=== PATIENT | male | born 1945 | race Caucasian/White ===

== ENCOUNTER → 2018-06-19 | Outpatient (CLI) | payer MEDICARE ==
--- NOTE | 2018-06-19 18:27 | Diagnostic Imaging Report ---
EXAMINATION: Cervical spine. INDICATION: Neck pain. FINDINGS: AP, lateral, and odontoid views were obtained. There are no prior studies available for comparison. The lateral view shows the vertebral body heights and alignment to be generally within normal limits. The intervertebral disc spaces are fairly well maintained although the C7-T1 level is not well visualized. There is no fracture or acute bony abnormality identified. There is no sign of retropharyngeal edema. The lung apices are clear. IMPRESSION: 1. There is no evidence for an acute bony abnormality. 2. If there is clinical concern regarding spinal stenosis or nerve root encroachment, then MRI will be recommended for further study. Dictated by: Dictated on workstation # [id number]
== END ==
LOC: RAD FS 14:27
PROVIDERS: ATTEND Family Medicine
DX: M54.12 Radiculopathy, cervical region (principal)
CPT/HCPCS: 72040

== ENCOUNTER → 2018-07-02 | Outpatient (CLI) | payer MEDICARE ==
--- NOTE | 2018-07-02 14:12 | Diagnostic Imaging Report ---
CLINICAL INDICATION: Patient with neck pain and left shoulder and arm pain with occasional numbness and tingling. No injury. EXAM: MRI of the cervical spine without contrast. Sequences include sagittal T2, sagittal T1, sagittal T2 fat-sat, axial T2, and axial 3-D gradient echo. COMPARISON: None. FINDINGS: There is no acute cervical spine fracture or dislocation. There are chronic concave compression deformities involving the upper and lower C4 through T1 endplates related to chronic compression deformities. Limited visualization of posterior fossa shows no significant abnormality. Cervical spinal cord has normal cord caliber. There is a 12 mm x 15 mm (AP x CC) circumscribed heterogeneous high T2 and slightly high T1 signal lesion in the midline posterior nasopharyngeal region at the level of the skull base. 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 C1-C2: There are small degenerative spurs involving the atlanto-odontoid interval anteriorly. There is no significant central canal narrowing. C2-C3: There is mild right facet arthropathy and moderate left facet arthropathy. There is mild right neural foramen narrowing and moderate left neural foramen narrowing. There is no significant central canal narrowing. C3-C4: There is mild diffuse disc bulge and moderate bilateral facet arthropathy with hypertrophic changes on the right. There are bilateral uncinate spurs. There is mild central canal narrowing, moderate right neural foramen narrowing and severe left neural foramen narrowing. C4-C5: There is a diffuse disc bulge with superimposed posterior disc extrusion/herniation. There is severe left facet arthropathy/hypertrophy and mild right facet arthropathy. There is ligamentum flavum buckling. There is moderate central canal narrowing, severe left neural foramen narrowing and at least moderate right neural foramen narrowing. C5-C6: There is a diffuse disc bulge and severe left facet arthropathy/hypertrophy and moderate right facet arthropathy. There is moderate central canal narrowing and concern for lajvhmhw-fq-[id number] bilateral neural foramen narrowing. C6-C7: There is severe bilateral facet arthropathy/hypertrophy. There is severe right neural foramen narrowing and at least mild left neural foramen narrowing. There is ligamentum flavum buckling. There is moderate central canal narrowing. C7-T1: There is a diffuse disc bulge with posterior disc spurs. There is severe right facet arthropathy and moderate left facet arthropathy. There is moderate right neural foramen narrowing and mild left neural foramen narrowing. There is no significant central canal narrowing. IMPRESSION: 1: There is dxcmtgep-pj-[id number] multilevel cervical spine degenerative disc disease which is worse at the C4 through C7 levels, as described above. 2: Chronic compression deformities of the C4 through T1 vertebra. 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 Dictated by: Dictated on workstation # [id number]
== END ==
LOC: RAD 12:39
PROVIDERS: ATTEND Family Medicine
DX: M50.13 Cervical disc disorder with radiculopathy, cervicothoracic region (principal); M46.82 Other specified inflammatory spondylopathies, cervical region; M48.02 Spinal stenosis, cervical region; M43.8X2 Other specified deforming dorsopathies, cervical region; M43.8X4 Other specified deforming dorsopathies, thoracic region
CPT/HCPCS: 72141

== ENCOUNTER 2019-02-08 13:46 | Emergency (ER) | payer MEDICARE ==
[~2019-02-08] VITALS: Ht 177.8 cm; Wt 89.3 kg
--- NOTE | 2019-02-08 14:08 | ED Fall/Injury ---
General Stated Complaint: FALL - HIT HEAD Source: patient, spouse Exam Limitations: no limitations History of Present Illness Date Seen by Provider: Feb 08, 2019 Time Seen by Provider: 13:50 Initial Comments Patient presents to ER by private conveyance with chief complaint of a fall on Saturday, 5 days ago. He was at the [place] ramp trying [place] load a boat onto a trailer when he slipped in the [place] landing on his left side and hitting the back of his head. When he tried to get up again he slipped again landing against on his left hip. He says he has a lot of bruising in his left hip but he has pain pills for that. He is more concerned because he has a headache today and the top of his head and felt tired throughout temple service and had a hard time staying awake. He is not on aspirin, Plavix, Brilinta or any other blood thinners. No coronary history. He has not used anything for his headache. He also has concerns is his neck is very stiff every tries to turn it. He is not having any pain in the middle of his neck. Allergies and Home Medications Patient Home Medication List Home Medication List Reviewed: Yes Review of Systems Review of Systems Constitutional: No chills, No diaphoresis Eyes: Denies Blindness, Denies Blurred Vision Ears, Nose, Mouth, Throat: denies ear pain, denies ear discharge Respiratory: No cough, No short of breath Cardiovascular: No chest pain, No Hx of Intervention, No palpitations Past Hityksv-Eefazc-Aonmja Hx Patient Social History Recreational Drug Use: No Smoking Status: Never a Smoker Physical Exam Vital Signs Capillary Refill : Height, Weight, BMI Height: '" Weight: lbs. oz. kg; BMI Method: General Appearance: WD/WN, no apparent distress HEENT: PERRL/EOMI, normal ENT inspection, TMs normal, pharynx normal, other (atraumatic head without hematoma or abrasion or laceration. 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 Using the shared decision making process we offered a CT of the head and neck and the patient declined. We offered to examine his left hip and he says it does not him. He was able to walk in easily. We'll provide him with some Flexeril for his neck stiffness as well as counseling for concussion management. Return precautions were given. Departure Impression Primary Impression: Fall (on)(from) incline, sequela Additional Impressions: Concussion Qualified Codes: S06.0X0A - Concussion without loss of consciousness, initial encounter Cervical paraspinous muscle spasm Headache Qualified Codes: G44.319 - Acute post-traumatic headache, not intractable Multiple ecchymoses of thigh Left hip pain Disposition: 01 HOME, SELF-CARE Condition: Stable Departure-Patient Inst. Decision time for Depature: 14:06 Referrals: [facility] (PCP) Primary Care Physician SELF,VIVIANE CANTU (Family) Primary Care Physician Patient Instructions: Concussion, Adult (DC), Hip Pain Add. Discharge Instructions: Heating pads especially over the left hip and neck can be useful. Topical creams such as icy hot, Biofreeze etc. Tylenol 1000 mg every 8 hours as needed for pain. Ibuprofen 800 mg every 8 hours as needed for pain. For the stiffness and soreness in your neck you can use cyclobenzaprine one half to one tablet every 8 hours as needed for muscle relaxation. It will cause drow siness. Please return to the ER if you begin to have any significant neurologic changes such as weakness, numbness, confusion. Review the handout on concussion and get some rest today. Keep a low stimuli environment until your 2 days without symptoms and not relying on medications to mask symptoms. Then you are considered concussion free. Until concussion free do not take unnecessary risks with your head. Wearing your seatbelt, stay off of ladders and scaffolding etc. Scripts Cyclobenzaprine HCl (Cyclobenzaprine HCl) 10 Mg Tablet 10 MG PO Q8H PRN for SPASMS, #15 TAB 0 Refills Prov: SANTOSH STORM 02/08/19 SANTOSH STORM Feb 08, 2019 14:08
[2019-02-08] MEDS ORDERED: CYCL10TA9 PO (14:09)
[2019-02-08 14:24] VITALS: BP 133/91
== END 2019-02-08 14:26 | disposition home or self-care (01) ==
LOC: EDUNIT# 13:46 → ER FS 13:47
DX: S06.0X0A Concussion without loss of consciousness, initial encounter (principal); S70.10XA Contusion of unspecified thigh, initial encounter; M62.838 Other muscle spasm; R51 Headache; M25.552 Pain in left hip; R40.2142 Coma scale, eyes open, spontaneous, at arrival to emergency department; R40.2252 Coma scale, best verbal response, oriented, at arrival to emergency department; R40.2362 Coma scale, best motor response, obeys commands, at arrival to emergency department; W01.198A Fall on same level from slipping, tripping and stumbling with subsequent striking against other object, initial encounter
CPT/HCPCS: 99282

== ENCOUNTER 2021-04-19 10:35 | Outpatient (CLI) | payer MEDICARE ==
[~2021-04-19] VITALS: Ht 177.8 cm; Wt 90.9 kg
[~2021-04-19 10:35] MED LIST: CYCL10TA25 PO
[2021-04-19 10:50] VITALS: BP 140/89
[2021-04-19] MEDS ORDERED: ACETAMINOPHEN 500 MG TAB (TYLENOL) PO PRN (11:00)
[2021-04-19] MEDS ORDERED: BAMLANIVIMAB 700 MG/ETESEVIMAB 1,400 MG IN NS IV ONE ×3 (11:00)
[2021-04-19] MEDS ORDERED: diphenhydrAMINE 50 MG/ML INJ (BENADRYL) IV PRN (11:00)
[2021-04-19] MEDS ORDERED: EPINEPHrine INJECTION 1 MG/ML AMP IM PRN (11:00)
[2021-04-19] MEDS ORDERED: ONDANSETRON 4 MG/2 ML (SDV) Z0FRAN IV PRN (11:00)
[2021-04-19 12:13] VITALS: BP 135/77
== END 2021-04-19 12:13 ==
LOC: INFUSION 10:35
PROVIDERS: ATTEND Registered Nurse
DX: U07.1 COVID-19 (principal)

== ENCOUNTER 2022-02-27 17:36 | Emergency (ER) | payer MEDICARE ==
--- NOTE | 2022-02-27 17:54 | ED Chest Pain ---
General Stated Complaint: CP History of Present Illness Date Seen by Provider: Feb 27, 2022 Time Seen by Provider: 17:49 Initial Comments 76-year-old male presents with some epigastric chest pain has been going on for at least a week. He says occasionally has some pain and discomfort down to his lower abdomen. Nothing seems make it worse or better. He does report he has been under a lot of stress due to some health issues with his granddaughter. Patient reports he has had some similar this in the past and had a big work-up and nothing was found. Patient denies any shortness of breath, nausea vomiting fever chills or any other systemic complaints. Allergies and Home Medications Allergies Coded Allergies: Penicillins (Verified Allergy, Unknown, 04/19/21) Sulfa (Sulfonamide Antibiotics) (Verified Allergy, Unknown, 02/08/19) aspirin (Verified Allergy, Unknown, 02/08/19) Patient Home Medication List Home Medication List Reviewed: Yes Cyclobenzaprine HCl (Cyclobenzaprine HCl) 10 Mg Tablet, 10 MG PO Q8H PRN for SPASMS Prescribed by: SANTOSH STORM on 02/08/19 [id number] Review of Systems Review of Systems Constitutional: No chills, No fever, No malaise EENTM: No Symptoms Reported Respiratory: Denies Cough, Denies Shortness of Air Cardiovascular: See HPI; Denies Irregular Heart Rate, Denies Lightheadedness Gastrointestinal: See HPI; Denies Diarrhea, Denies Nausea, Denies Vomiting Genitourinary: No Symptoms Reported Musculoskeletal: no symptoms reported Skin: no symptoms reported Psychiatric/Neurological: No Symptoms Reported Endocrine: No Symptoms Reported Past Ohkkypb-Auxnra-Mtaktq Hx Seasonal Allergies Seasonal Allergies: No Past Medical History Surgeries: No Respiratory: No Cardiac: No Neurological: No Genitourinary: No Gastrointestinal: No Musculoskeletal: Yes (broken ankle) Endocrine: No HEENT: No Cancer: No Psychosocial: No Integumentary: No Blood Disorders: No Adverse Reaction/Blood Tranf: No Physical Exam Vital Signs Vital Signs - First Documented 02/27/22 17:50 Temp 36.5 Pulse 94 Resp 16 B/P (MAP) 151/88 (109) Pulse Ox 96 O2 Delivery Room Air Capillary Refill : Height, Weight, BMI Height: '" Weight: lbs. oz. kg; 28.00 BMI Method: General Appearance: No Apparent Distress, WD/WN HEENT: PERRL/EOMI Neck: Non Tender, Supple Respiratory: Lungs Clear, Normal Breath Sounds Cardiovascular: Regular Rate, Rhythm, No Edema Gastrointestinal: Non Tender, Soft Neurologic/Psychiatric: Alert, Oriented x3, No Motor/Sensory Deficits, Normal Mood/Affect, actuarial internship II-XII Norm as Tested Skin: Normal Color, Warm/Dry Progress/Results/Core Measures Results/Orders Lab Results Laboratory Tests Test 02/27/22 18:02 Range/Units White Blood Count 12.3 H 4.3-11.0 10^3/uL Red Blood Count 4.99 4.30-5.52 10^6/uL Hemoglobin 14.8 13.3-17.7 g/dL Hematocrit 43 40-54 % Mean Corpuscular Volume 86 80-99 fL Mean Corpuscular Hemoglobin 30 25-34 pg Mean Corpuscular Hemoglobin Concent 34 32-36 g/dL Red Cell Distribution Width 13.7 10.0-14.5 % Platelet Count 211 130-400 10^3/uL Mean Platelet Volume 11.0 9.0-12.2 fL Immature Granulocyte % (Auto) 2 % Neutrophils (%) (Auto) 54 42-75 % Lymphocytes (%) (Auto) 33 12-44 % Monocytes (%) (Auto) 9 0-12 % Eosinophils (%) (Auto) 2 0-10 % Basophils (%) (Auto) 1 0-10 % Neutrophils # (Auto) 6.6 1.8-7.8 10^3/uL Lymphocytes # (Auto) 4.0 1.0-4.0 10^3/uL Monocytes # (Auto) 1.1 H 0.0-1.0 10^3/uL Eosinophils # (Auto) 0.3 0.0-0.3 10^3/uL Basophils # (Auto) 0.1 0.0-0.1 10^3/uL Immature Granulocyte # (Auto) 0.2 H 0.0-0.1 10^3/uL Sodium Level 136 135-145 MMOL/L Potassium Level 4.1 3.6-5.0 MMOL/L Chloride Level 103 98-107 MMOL/L Carbon Dioxide Level 17 L 21-32 MMOL/L Anion Gap 16 H 5-14 MMOL/L Blood Urea Nitrogen 20 H 7-18 MG/DL Creatinine 1.08 0.60-1.30 MG/DL Estimat Glomerular Filtration Rate 72 BUN/Creatinine Ratio 19 Glucose Level 222 H 70-105 MG/DL Calcium Level 8.9 8.5-10.1 MG/DL Corrected Calcium 8.6 8.5-10.1 MG/DL Total Bilirubin 0.2 0.1-1.0 MG/DL Aspartate Amino Transf (AST/SGOT) 21 5-34 U/L Alanine Aminotransferase (ALT/SGPT) 31 0-55 U/L Alkaline Phosphatase 125 40-136 U/L Troponin I < 0.30 <0.30 NG/ML C-Reactive Protein < 0.30 <0.50 MG/DL Total Protein 7.3 6.4-8.2 GM/DL Albumin 4.4 3.2-4.5 GM/DL Lipase 59 8-78 U/L My Orders Orders - BHATT,PHILLIP L DO Cbc With Automated Diff (02/27/22 17:56) Comprehensive Metabolic Panel (02/27/22 17:56) Lipase (02/27/22 17:56) Crp Fs (02/27/22 17:56) Troponin I Fs (02/27/22 17:56) Acute Abd Series (02/27/22 17:56) Famotidine Injection (Pepcid Injection) (02/27/22 17:56) Vital Signs/I&O 02/27/22 17:50 Temp 36.5 Pulse 94 Resp 16 B/P (MAP) 151/88 (109) Pulse Ox 96 O2 Delivery Room Air Progress Progress Note : Progress Note Patient symptoms improved with the Pepcid. Patient has been under a lot of stress I suspect that combination of some stress along with some reflux that i nduced from the stress of the may be a mild gastritis. Recommend he start Pepcid twice daily. Patient stable. He should follow with a primary care provider in week or so to recheck his symptoms. Patient stable and discharged home Initial ECG Impression Date: Feb 27, 2022 Initial ECG Impression Time: 17:55 Initial ECG Rate: 88 Initial ECG Rhythm: Normal Sinus Initial ECG Intervals: Normal Initial ECG Impression: Normal Diagnostic Imaging Diagonstic Imaging: Xray Plain Films/CT/US/NM/MRI: chest Comments ACUTE ABD SERIES INDICATION: Pain. FINDINGS: The lungs are clear. There is no failure, effusion or pneumothorax. Supine and upright abdominal films showed an unremarkable and nonobstructive bowel gas pattern. No free air. No air-fluid levels. No pneumatosis. No suspect calcifications. IMPRESSION: Unremarkable acute abdominal series. Departure Impression Primary Impression: Gastritis Qualified Codes: K29.70 - Gastritis, unspecified, without bleeding Additional Impression: Stress Disposition: HOME, SELF-CARE Condition: Stable Departure-Patient Inst. Referrals: [facility] (PCP) Primary Care Physician VIVIANE BERMUDEZ MD (Family) Primary Care Physician Patient Instructions: Gastritis (DC), Tips to Help You Worry Less, Stress Add. Discharge Instructions: Pepcid twice daily for 2 weeks then as needed. Follow-up with your primary care provider in a week for recheck of your symptoms PHILLIP BHATT DO Feb 27, 2022 17:54
[2022-02-27] MEDS ORDERED: FAMOTIDINE 20MG/2ML IV (PEPCID) IV STA (17:56)
[2022-02-27 18:07] LABS: BASOPHILS # (AUTO) 0.1 10^3/uL (0.0-0.1); BASOPHILS % (AUTO) 1 % (0-10); EOSINOPHILS # (AUTO) 0.3 10^3/uL (0.0-0.3); EOSINOPHILS % (AUTO) 2 % (0-10); HEMATOCRIT 43 % (40-54); HEMOGLOBIN 14.8 g/dL (13.3-17.7); LYMPHOCYTES % (AUTO) 33 % (12-44); MEAN CORPUSCULAR HEMOGLOBIN 30 pg (25-34); MEAN CORPUSCULAR HGB CONC 34 g/dL (32-36); MEAN CORPUSCULAR VOLUME 86 fL (80-99); MONOCYTES # (AUTO) 1.1 10^3/uL (0.0-1.0); MONOCYTES % (AUTO) 9 % (0-12); NEUTROPHILS # (AUTO) 6.6 10^3/uL (1.8-7.8); NEUTROPHILS % (AUTO) 54 % (42-75); PLATELET COUNT 211 10^3/uL (130-400); WHITE BLOOD COUNT 12.3 10^3/uL (4.3-11.0)
--- NOTE | 2022-02-27 18:27 | Diagnostic Imaging Report ---
INDICATION: Pain. FINDINGS: The lungs are clear. There is no failure, effusion or pneumothorax. Supine and upright abdominal films showed an unremarkable and nonobstructive bowel gas pattern. No free air. No air-fluid levels. No pneumatosis. No suspect calcifications. IMPRESSION: Unremarkable acute abdominal series. Dictated by: Dictated on workstation # [id number]
[2022-02-27 18:33] LABS: ALANINE AMINOTRANSFERASE 31 U/L (0-55); ALKALINE PHOSPHATASE 125 U/L (40-136); BILIRUBIN,TOTAL 0.2 MG/DL (0.1-1.0); BUN/CREATININE RATIO 19; CALCIUM 8.9 MG/DL (8.5-10.1); CARBON DIOXIDE 17 MMOL/L (21-32); CHLORIDE 103 MMOL/L (98-107); CREATININE SERUM 1.08 MG/DL (0.60-1.30); GFR ESTIMATED 72; GLUCOSE 222 MG/DL (70-105); POTASSIUM 4.1 MMOL/L (3.6-5.0); SODIUM 136 MMOL/L (135-145)
[2022-02-27 18:34] LABS: ALBUMIN 4.4 GM/DL (3.2-4.5); LIPASE 59 U/L (8-78); TOTAL PROTEIN 7.3 GM/DL (6.4-8.2)
[2022-02-27 18:56] VITALS: BP 151/80
== END 2022-02-27 18:56 | disposition home or self-care (01) ==
LOC: EDUNIT# 17:36 → ER FS 17:37
DX: K29.70 Gastritis, unspecified, without bleeding (principal); F43.9 Reaction to severe stress, unspecified
CPT/HCPCS: 36415; 74022; 80053; 83690; 84484; 85025; 86141; 93005

== ENCOUNTER → 2022-05-27 | Outpatient (CLI) | payer MEDICARE ==
--- NOTE | 2022-05-27 12:38 | Diagnostic Imaging Report ---
INDICATION: Cough. TECHNIQUE: PA and lateral views were obtained. FINDINGS: The heart size, mediastinal configuration, and pulmonary vascularity are within normal limits. There is no pleural effusion, pneumothorax, or pneumonia. The osseous structures are unremarkable. IMPRESSION: No acute cardiopulmonary abnormality. Dictated by: Dictated on workstation # [id number]
== END ==
LOC: RAD FS 12:06
PROVIDERS: ATTEND Nurse Practitioner
DX: R05.9 Cough, unspecified (principal)
CPT/HCPCS: 71046

== ENCOUNTER 2022-05-30 10:05 | Emergency (ER) | payer MEDICARE ==
[2022-05-30 10:29] LABS: BILIRUBIN,URINE NEGATIVE (NEGATIVE); CLARITY,URINE CLEAR; COLOR,URINE YELLOW; GLUCOSE, URINE (UA) 3+ (NEGATIVE); KETONES,URINE 2+ (NEGATIVE); LEUKOCYTE ESTERASE ,URINE NEGATIVE (NEGATIVE); NITRITE,URINE NEGATIVE (NEGATIVE); PROTEIN,URINE NEGATIVE (NEGATIVE)
--- NOTE | 2022-05-30 10:33 | ED General ---
General Chief Complaint: General Problems/Pain Stated Complaint: ELEV GLUC Source of Information: Patient, Old Records (Lab records from [facility] clinic drawn 05/29/22) History of Present Illness Date Seen by Provider: May 30, 2022 Time Seen by Provider: 10:09 Initial Comments 76-year-old male presenting to the emergency department due to abnormal labs from 05/29/2022. He had gone in for routine blood work prior to a office visit and they called this morning and told him he needed to glover to the emergency department and it was a life or situation. He had elevated glucose of 813 with an A1c of 13.3 yesterday. The [facility] clinic did not provide any older blood work with previous labs on the patient. Patient states that he has been having a dry mouth and been more thirsty lately. He does have sores in his mouth that makes it hard for him to swallow. He has been having some increasing shortness of breath in the last few days. He denies having fever, chills, nausea, vomiting, headache, chest pain, abdominal pain, pain with urination. He does have urinary frequency. He states he does not have anything at home to be able to check his blood sugars and was unclear on his medications. According to his sister in the room he does have some issues with having a lower IQ and sometimes having difficulty understanding things. He does live independently but his sister helps with paying his bills and helps take care of him. Associated Systoms: No Chest Pain; Cough (Occasional intermittent); No Diaphoresis, No Fever/Chills, No Headaches, No Loss of Appetite, No Malaise, No Nausea/Vomiting, No Rash, No Seizure; Shortness of Air; No Syncope, No Weakness Allergies and Home Medications Allergies Coded Allergies: Penicillins (Verified Allergy, Unknown, 04/19/21) Sulfa (Sulfonamide Antibiotics) (Verified Allergy, Unknown, 02/08/19) aspirin (Verified Allergy, Unknown, 02/08/19) Patient Home Medication List Home Medication List Reviewed: Yes Cyclobenzaprine HCl (Cyclobenzaprine HCl) 10 Mg Tablet, 10 MG PO Q8H PRN for SPASMS Prescribed by: SANTOSH STORM on 02/08/19 [id number] Review of Systems Review of Systems Constitutional: No chills, No dizziness, No fever EENTM: see HPI, mouth pain, throat pain, other (dry mouth and feels sore when he tries to swallow, right side worse than the left side) Respiratory: see HPI, cough (intermittent dry cough), short of breath Cardiovascular: No chest pain, No edema, No palpitations Gastrointestinal: No abdominal pain, No nausea, No vomiting Genitourinary: No dysuria; frequency Musculoskeletal: no symptoms reported Skin: No rash Psychiatric/Neurological: Denies Headache Past Qkkhcol-Sawrkm-Gvyyli Hx Patient Social History Tobacco Use?: No Use of E-Cig and/or Vaping dev: No Substance use?: No Alcohol Use?: No Pt feels they are or have been: No Immunizations Up To Date Influenza Vaccine Up-to-Date: No; Not Current First/Initial COVID19 Vaccinat: NO Second COVID19 Vaccination Pa: NO Third COVID19 Vaccination Date: NO COVID19 Vaccine Cherry Pitter: NO Seasonal Allergies Seasonal Allergies: No Past Medical History Surgery/Hospitalization HX: DIABETIC, hypothyroidism, hyperlipidemia, GERD, diabetic neuropathy Surgeries: No Respiratory: No Cardiac: No Neurological: No Genitourinary: No Gastrointestinal: No Musculoskeletal: Yes (broken ankle) Endocrine: No HEENT: No Cancer: No Psychosocial: No Integumentary: No Blood Disorders: No Adverse Reaction/Blood Tranf: No Physical Exam Vital Signs Vital Signs - First Documented 05/30/22 10:18 Temp 36.9 Pulse 117 Resp 18 B/P (MAP) 137/103 (114) Pulse Ox 95 O2 Delivery Room Air Capillary Refill : Height, Weight, BMI Height: '" Weight: lbs. oz. kg; 28.00 BMI Method: General Appearance: No Apparent Distress, WD/WN HEENT: PERRL/EOMI; No Moist Mucous Membranes (Dry mucous membranes with some white plaque present); Pharyngeal Erythema (Mild redness to the posterior pharynx worse on the right side.) Neck: Full Range of Motion, Normal Inspection, Non Tender, Supple Respiratory: Chest Non Tender, Lungs Clear, Normal Breath Sounds, No Accessory Muscle Use, No Respiratory Distress Cardiovascular: Regular Rate, Rhythm, Normal Peripheral Pulses Gastrointestinal: Normal Bowel Sounds, No Pulsatile Mass, Non Tender, Soft Rectal: Deferred Extremity: Normal Capillary Refill, Normal Inspection, No Pedal Edema Neurologic/Psychiatric: Alert, Oriented x3, it infrastructure consultant II-XII Norm as Tested Skin: Normal Color, Warm/Dry Progress/Results/Core Measures Suspected Sepsis SIRS Temperature: Pulse: Respiratory Rate: Laboratory Tests 05/30/22 10:20: White Blood Count 14.9H Blood Pressure / Mean: Laboratory Tests 05/30/22 10:20: Creatinine 1.09, Platelet Count 276, Total Bilirubin 0.5 Results/Orders Lab Results Laboratory Tests Test 05/30/22 10:18 05/30/22 10:20 05/30/22 10:30 Range/Units Urine Color YELLOW Urine Clarity CLEAR Urine pH 5.0 5-9 Urine Specific [place] 1.010 L 1.016-1.022 Urine Protein NEGATIVE NEGATIVE Urine Glucose (UA) 3+ H NEGATIVE Urine Ketones 2+ H NEGATIVE Urine Nitrite NEGATIVE NEGATIVE Urine Bilirubin NEGATIVE NEGATIVE Urine Urobilinogen 0.2 < = 1.0 MG/DL Urine Leukocyte Esterase NEGATIVE NEGATIVE Urine RBC (Auto) TRACE-I H NEGATIVE Urine RBC NONE /HPF Urine WBC 0-2 /HPF Urine Squamous Epithelial Cells NONE /HPF Urine Crystals NONE /LPF Urine Bacteria NEGATIVE /HPF Urine Casts NONE /LPF Urine Mucus NEGATIVE /LPF Urine Culture Indicated NO White Blood Count 14.9 H 4.3-11.0 10^3/uL Red Blood Count 4.74 4.30-5.52 10^6/uL Hemoglobin 14.1 13.3-17.7 g/dL Hematocrit 39 L 40-54 % Mean Corpuscular Volume 83 80-99 fL Mean Corpuscular Hemoglobin 30 25-34 pg Mean Corpuscular Hemoglobin Concent 36 32-36 g/dL Red Cell Distribution Width 13.4 10.0-14.5 % Platelet Count 276 130-400 10^3/uL Mean Platelet Volume 12.4 H 9.0-12.2 fL Immature Granulocyte % (Auto) 2 % Neutrophils (%) (Auto) 64 42-75 % Lymphocytes (%) (Auto) 23 12-44 % Monocytes (%) (Auto) 7 0-12 % Eosinophils (%) (Auto) 4 0-10 % Basophils (%) (Auto) 1 0-10 % Neutrophils # (Auto) 9.5 H 1.8-7.8 10^3/uL Lymphocytes # (Auto) 3.5 1.0-4.0 10^3/uL Monocytes # (Auto) 1.1 H 0.0-1.0 10^3/uL Eosinophils # (Auto) 0.6 H 0.0-0.3 10^3/uL Basophils # (Auto) 0.1 0.0-0.1 10^3/uL Immature Granulocyte # (Auto) 0.2 H 0.0-0.1 10^3/uL Neutrophils % (Manual) 71 % Lymphocytes % (Manual) 18 % Monocytes % (Manual) 7 % Eosinophils % (Manual) 2 % Basophils % (Manual) 0 % Myelocytes % 1 % Band Neutrophils 1 % Sodium Level 125 *L 135-145 MMOL/L Potassium Level 4.1 3.6-5.0 MMOL/L Chloride Level 86 L 98-107 MMOL/L Carbon Dioxide Level 14 L 21-32 MMOL/L Anion Gap 25 H 5-14 MMOL/L Blood Urea Nitrogen 39 H 7-18 MG/DL Creatinine 1.09 0.60-1.30 MG/DL Estimat Glomerular Filtration Rate 71 BUN/Creatinine Ratio 36 Glucose Level 825 *H 70-105 MG/DL Calcium Level 9.4 8.5-10.1 MG/DL Corrected Calcium 9.2 8.5-10.1 MG/DL Magnesium Level 2.2 1.6-2.4 MG/DL Total Bilirubin 0.5 0.1-1.0 MG/DL Aspartate Amino Transf (AST/SGOT) 22 5-34 U/L Alanine Aminotransferase (ALT/SGPT) 25 0-55 U/L Alkaline Phosphatase 190 H 40-136 U/L Troponin I < 0.30 <0.30 NG/ML C-Reactive Protein 1.18 H <0.50 MG/DL Pro-B-Type Natriuretic Peptide 180.9 <450.0 PG/ML Total Protein 7.6 6.4-8.2 GM/DL Albumin 4.2 3.2-4.5 GM/DL Blood Gas Puncture Site RT RADIAL Blood Gas Patient Temperature 36.1 Arterial Blood pH 7.37 7.37-7.43 Arterial Blood Partial Pressure CO2 21 L 35-45 MMHG Arterial Blood Partial Pressure O2 106 H 79-93 MMHG Arterial Blood HCO3 12 *L 23-27 MMOL/L Arterial Blood Total CO2 12.7 L 21.0-31.0 MMOL/L Arterial Blood Oxygen Saturation 98 94-100 % Arterial Blood Base Excess -11.1 L -2.5-2.5 MMOL/L Mau Test OK Blood Gas Ventilator Setting NO Blood Gas Inspired Oxygen ROOM AIR My Orders Orders - EMRA WILSON MD Accucheck Stat ONCE (05/30/22 10:18) Ua Culture If Indicated (05/30/22 10:18) Cbc With Automated Diff (05/30/22 10:28) Comprehensive Metabolic Panel (05/30/22 10:28) Chest 1 View Ap/Pa Only (05/30/22 10:28) Magnesium (05/30/22 10:28) Ekg Tracing (05/30/22 10:28) O2 (05/30/22 10:28) Ed Iv/Invasive Line Start (05/30/22 10:28) Monitor-Rhythm Ecg Trace Only (05/30/22 10:28) Crp Fs (05/30/22 10:28) Arterial Blood Gas (05/30/22 10:28) Troponin I Fs (05/30/22 10:29) Probnp Fs (05/30/22 10:29) Manual Differential (05/30/22 10:20) Nystatin Oral Suspension (Mycostatin O (05/30/22 11:21) Insulin (Regular) Human (Novolin R (Per (05/30/22 11:21) Vital Signs/I&O 05/30/22 05/30/22 05/30/22 10:18 10:18 11:42 Temp 36.9 36.9 Pulse 117 99 Resp 18 18 B/P (MAP) 137/103 (114) 139/83 Pulse Ox 95 96 96 O2 Delivery Room Air Room Air Room Air Capillary Refill : Point of Care Testing Finger Stick Blood Glucose: 600 Blood Glucose Action Taken: REPORTED TO Progress Note #1: Progress Note Potential life-threatening diagnosis of diabetic ketoacidosis, hyperosmolar hyper glycemia, thyrotoxicosis, acute heart failure, myocardial infarction, naveed l failure, electrolyte imbalance. Obtain peripheral IV access and send labs to check complete blood count, comprehensive metabolic profile, troponin, proBNP, urinalysis, magnesium, ABG. Ordered chest x-ray to further evaluate his shortness of breath. Order cardiac telemetry monitoring to watch his heart rate and rhythm. My initial interpretation of this cardiac telemetry is that he is in a sinus rhythm with a heart rate of 94. He is satting anywhere from 93 to 96% on room air. Blood pressure was 137/103. My initial interpretation of his electrocardiogram was a normal sinus rhythm with frequent PVCs and appeared similar to tracing from February 27, 2022. He had no acute ST elevation or ischemic change. Progress Note #2: Time: 10:33 Progress Note Personally reviewed and interpreted his 1 view chest x-ray. I did not appreciate any acute infiltrate, effusion, or mass. His Accu-Chek was 600. Awaiting additional electrolyte and lab before trying to add in any insulin or fluids. Progress Note #3: Time: 11:03 Progress Note Complete blood count showed elevated white blood cell count of 14.9 with a left shift for possible infection or stress reaction. His blood gas had shown a pH of 7.37 with a PCO2 of 21 and a PO2 of 106. His urinalysis had a low specific gravity of 1.010. With this he had 3+ glucose and 2+ ketones but no signs of infection such as nitrites, leukocyte esterase, white blood cells or bacteria. I reviewed the radiologist report of the chest x-ray which showed no acute process. I reviewed labs and test results with the patient and his sister. I advised them I would like to admit him to the hospital to treat his elevated glucose. I feel this is partly due to the steroid burst he got of Prednisone 50 mg daily for 5 days, filled on 05/27/22. While contacting Dr. Merritt about admit will give Regular Insulin 10 units by IV to start helping with his hyperglycemia of 825. Give initial dose of Nystatin oral swish and swallow to start treatment for oral thrush. [id number] Merritt, contractor field hauling physician for [facility] inpatient service. R shauniewed his presentation and finding from labs done with [facility] yesterday. Today he has continued elevated Glucose of 825. He has oral thrush from his mouth being dry due to the high sugars. He has 2+ ketones in his urine along with 3+ glucose. He does have an elevated anion gap at 25 to go along with his elevated sugar level. He has some renal insufficiency with a creatinine of 1.09 and BUN of 39 for some mild dehydration. He would need an insulin drip to help treat the sugars that is that high. They would want to slowly bring this down. At the moment there is not a monitored bed available at [place] for him to have an insulin drip. She accepted him for admission and will admit to [facility] for Insulin drip and monitoring. ECG Initial ECG Impression Date: May 30, 2022 Initial ECG Impression Time: 10:36 Initial ECG Rate: 97 Initial ECG Rhythm: Normal Sinus Initial ECG Comparisson: Unchanged (02/27/2022) Comment My personal interpretation and review of the electrocardiogram shows sinus rhythm with frequent premature ventricular contractions. His heart rate is 97 bpm. OH interval 159 ms. QT interval 383 ms with a QTc interval 437 ms. He has no acute ST elevation. Overall appears similar to tracing from February 27, 2022. Diagnostic Imaging Diagonstic Imaging: Xray Plain Films/CT/US/NM/MRI: chest Comments NAME: KOKO GAMBLE [facility] REC#: [id number] PT STATUS: REG ER : 1945 PHYSICIAN: ERMA WILSON MD ADMIT DATE: 05/30/22/ER FS Draft Date of Exam:05/30/22 CHEST 1 VIEW AP/PA ONLY CLINICAL INDICATION: Patient with shortness of breath. EXAM: Portable chest x-ray upright view. COMPARISON: Chest x-ray dated 05/27/2022. FINDINGS: Lungs/pleura: Lungs are clear. There is no pneumothorax. There is no pleural effusion. Mediastinum: Unremarkable. Pulmonary vasculature: Unremarkable. Heart: Unremarkable. Bones/extrathoracic soft tissue: There are degenerative spurs involving the thoracic spine. IMPRESSION: There is no radiographic evidence of acute cardiopulmonary process. Dictated on workstation # [id number] Dict: 05/30/22 1044 Trans: 05/30/22 1047 [facility] [id number] Interpreted by: SASHA ALAN MD Electronically signed by: Reviewed: Reviewed by Me Departure Impression Primary Impression: Hyperglycemia due to type 2 diabetes mellitus Qualified Codes: E11.65 - Type 2 diabetes mellitus with hyperglycemia Additional Impressions: Steroid-induced hyperglycemia Oral thrush Disposition: XF SHT-TRM HOSP (ERASED) Condition: Stable Transfer Transfer Reason: Diversion (Limited beds at [facility]) Time Spoke to Accepting Phy: 11:26 Transfer Progress Notes D/w Dr. Merritt, contractor field hauling doctor for [facility] service inpatient care. Reviewed his presentation and finding from labs done with [facility] yesterday. Today he has continued elevated Glucose of 825. He has oral thrush from his mouth being dry due to the high sugars. He has 2+ ketones in his urine along with 3+ glucose. He does have an elevated anion gap at 25 to go along with his elevated sugar level. He has some renal insufficiency with a creatinine of 1.09 and BUN of 39 for some mild dehydration. He would need an insulin drip to help treat the sugars that is that high. They would want to slowly bring this down. At the moment there is not a monitored bed available at [facility] for him to have an insulin drip. She accepted him for admission and will admit to [facility] for Insulin drip and monitoring. Transfer Facility: [facility] Method of Transfer: Private Vehicle Departure-Patient Inst. Referrals: VIVIANE BERMUDEZ MD (PCP) Primary Care Physician ERMA WILSON MD May 30, 2022 10:33
[2022-05-30 10:37] LABS: BASOPHILS # (AUTO) 0.1 10^3/uL (0.0-0.1); BASOPHILS % (AUTO) 1 % (0-10); EOSINOPHILS # (AUTO) 0.6 10^3/uL (0.0-0.3); EOSINOPHILS % (AUTO) 4 % (0-10); HEMATOCRIT 39 % (40-54); HEMOGLOBIN 14.1 g/dL (13.3-17.7); LYMPHOCYTES # (AUTO) 3.5 10^3/uL (1.0-4.0); LYMPHOCYTES % (AUTO) 23 % (12-44); MEAN CORPUSCULAR HEMOGLOBIN 30 pg (25-34); MEAN CORPUSCULAR HGB CONC 36 g/dL (32-36); MEAN CORPUSCULAR VOLUME 83 fL (80-99); MEAN PLATELET VOLUME 12.4 fL (9.0-12.2); MONOCYTES # (AUTO) 1.1 10^3/uL (0.0-1.0); MONOCYTES % (AUTO) 7 % (0-12); NEUTROPHILS # (AUTO) 9.5 10^3/uL (1.8-7.8); NEUTROPHILS % (AUTO) 64 % (42-75); PLATELET COUNT 276 10^3/uL (130-400); WHITE BLOOD COUNT 14.9 10^3/uL (4.3-11.0)
[2022-05-30 10:41] LABS: BACTERIA,URINE NEGATIVE /HPF; WBC,URINE 0-2 /HPF
--- NOTE | 2022-05-30 10:47 | Diagnostic Imaging Report ---
CLINICAL INDICATION: Patient with shortness of breath. EXAM: Portable chest x-ray upright view. COMPARISON: Chest x-ray dated 05/27/2022. FINDINGS: Lungs/pleura: Lungs are clear. There is no pneumothorax. There is no pleural effusion. Mediastinum: Unremarkable. Pulmonary vasculature: Unremarkable. Heart: Unremarkable. Bones/extrathoracic soft tissue: There are degenerative spurs involving the thoracic spine. IMPRESSION: There is no radiographic evidence of acute cardiopulmonary process. Dictated by: Dictated on workstation # [id number]
[2022-05-30 10:49] LABS: ABG PCO2 21 MMHG (35-45); ABG PH 7.37 (7.37-7.43); ABG PO2 106 MMHG (79-93)
[2022-05-30 10:50] LABS: ABG BASE EXCESS -11.1 MMOL/L (-2.5-2.5); ABG TCO2 12.7 MMOL/L (21.0-31.0)
[2022-05-30 10:51] LABS: ABG OXYGEN SATURATION 98 % (94-100); INSPIRED O2 ROOM AIR; PATIENT TEMP 36.1; VENTILATOR NO
[2022-05-30 10:52] LABS: ALLENS TEST OK
[2022-05-30 11:12] LABS: POTASSIUM 4.1 MMOL/L (3.6-5.0)
[2022-05-30 11:13] LABS: BILIRUBIN,TOTAL 0.5 MG/DL (0.1-1.0); CALCIUM 9.4 MG/DL (8.5-10.1); CREATININE SERUM 1.09 MG/DL (0.60-1.30); MAGNESIUM 2.2 MG/DL (1.6-2.4)
[2022-05-30 11:14] LABS: ALBUMIN 4.2 GM/DL (3.2-4.5); TOTAL PROTEIN 7.6 GM/DL (6.4-8.2)
[2022-05-30] MEDS ORDERED: NYSTATIN ORAL SUSP 5 ML UDC PO STA (11:21)
[2022-05-30] MEDS ORDERED: inSUlin (REGULAR) HUMAN 1 UNIT/0.01 ML (CHARGE PER UNIT) IV STA (11:21)
[2022-05-30 11:23] LABS: BAND NEUTROPHILS 1 %; BASOPHILS % (MANUAL) 0 %; EOSINOPHILS % (MANUAL) 2 %; LYMPHOCYTES % (MANUAL) 18 %; MONOCYTES % (MANUAL) 7 %; MYELOCYTES % 1 %; NEUTROPHILS % (MANUAL) 71 %
[2022-05-30 11:42] VITALS: BP 139/83
== END 2022-05-30 12:34 | disposition short-term general hospital (02) ==
LOC: EDUNIT# 10:05 → ER FS 10:08
DX: E09.65 Drug or chemical induced diabetes mellitus with hyperglycemia (principal); T38.0X5A Adverse effect of glucocorticoids and synthetic analogues, initial encounter; B37.0 Candidal stomatitis; Z28.310 Unvaccinated for COVID-19
CPT/HCPCS: 36415; 71045; 80053; 81000; 82805; 82947; 83735; 83880; 84484; 85007; 85027; 86141; 93005; 93041; 99291